=== PATIENT | male | born 1950 | race Caucasian/White ===

== ENCOUNTER 2017-07-19 14:03 | Inpatient (IN) | payer SELFPAY ==
[2017-07-19] MEDS ORDERED: Iodixanol 320 MG/ML 100 ML BOTTLE IV ONE (15:40)
[2017-07-19 16:13] LABS: BASO % 0.7 % (0.0-2.0); EOS # 0.1 K/uL (0.0-0.7); EOS % 2.4 % (0.0-4.0); HEMATOCRIT 37.3 % (35.0-51.0); LYMPH # 1.5 K/uL (1.0-4.3); LYMPH % 31.9 % (20.0-40.0); MEAN CELL VOLUME 88.2 fL (80.0-94.0); MEAN CORPUSCULAR HEMOGLOBIN 29.2 pg (27.0-31.0); MEAN CORPUSCULAR HGB CONC 33.1 g/dL (33.0-37.0); MEAN PLATELET VOLUME 9.6 fL (7.2-11.7); MONO # 0.5 K/uL (0.0-0.8); NRBC % 0.1 % (0.0-2.0); RED CELL DISTRIBUTION WIDTH 14.9 % (11.5-14.5); WHITE BLOOD COUNT 4.6 K/uL (4.8-10.8)
[2017-07-19 16:23] LABS: ALB/GLOB RATIO 1.2 (1.0-2.1); ALCOHOL SERUM < 10 mg/dl (0-10); ALKALINE PHOSPHATASE 38 U/L (38-126); ALT/SGPT 29 U/L (21-72); AST/SGOT 30 U/L (17-59); BILIRUBIN,TOTAL 0.5 mg/dL (0.2-1.3); BLOOD UREA NITROGEN 13 mg/dL (9-20); CALCIUM 9.9 mg/dl (8.6-10.4); CARBON DIOXIDE 24 mmol/L (22-30); CHLORIDE 103 mmol/L (98-107); CHOLESTEROL 118 mg/dL (0-199); GFR AFRICAN-AMERICAN 49; GLUCOSE,RANDOM 93 mg/dL (75-110); POTASSIUM 5.2 mmol/L (3.6-5.2); SODIUM 142 mmol/L (132-148); TOTAL PROTEIN 7.8 g/dL (6.3-8.3)
--- NOTE | 2017-07-19 16:24 | CT ---
PROCEDURE: CT Angiography of the Brain. HISTORY: r/o cerebelar stroke COMPARISON: None available. TECHNIQUE: CT angiography of the intracranial arteries was performed. Coronal and sagittal maximum intensity projection reformated images were generated. This CT exam was performed using one or more of the following dose reduction techniques: Automated exposure control, adjustment of the mA and/or kV according to patient size, and/or use of iterative reconstruction technique. FINDINGS: Suboptimal study. INTERNAL CEREBRAL ARTERIES: Diffuse atherosclerotic disease and foci of calcification are noted. The skull base, petrous, cavernous and supraclinoid segments are bilaterally widely patient. ANTERIOR CEREBRAL ARTERIES: Unremarkable. A1 and A2 segments are widely patent. Smaller distal branches unremarkable, as visualized. MIDDLE CEREBRAL ARTERIES: Unremarkable. M1 and M2 segments are widely patent. Perisylvian branches grossly symmetric. POSTERIOR CIRCULATION: Basilar Artery: Unremarkable. Distal Vertebral Arteries: Foci of atherosclerotic calcification are seen. Posterior Cerebral Arteries: Unremarkable. Posterior Inferior Cerebellar Arteries: Are not well visualized ANEURYSM/ VASCULAR MALFORMATIONS: None. OTHER FINDINGS: None. IMPRESSION: Suboptimal study. No evidence of focal stenosis or occlusion in the visualized intracranial arteries.
[2017-07-19 16:36] LABS: RBC URINE < 1 /hpf (0-3); URINE BILIRUBIN NEGATIVE (NEGATIVE); URINE BLOOD NEGATIVE (NEGATIVE); URINE COLOR Colorless (YELLOW); URINE GLUCOSE (UA) NORMAL (Normal); URINE KETONE NEGATIVE (NEGATIVE); URINE LEUKOCYTE ESTERASE NEG Leu/uL (Negative); URINE PROTEIN NEGATIVE (NEGATIVE); URINE UROBILINOGEN NORMAL mg/dL (0.2-1.0); WBC URINE < 1 /hpf (0-5)
--- NOTE | 2017-07-19 16:38 | C.PDOC ---
History Of Present Illness A 67 year old male, whose past medical history includes hypertension, hypercholesterolemia, CAD with stents, and hypothyroidism, presents to the emergency department complaining of light headedness and unbalanced gait, which began earlier tody. The patient states he felt fine yesterday and this morning when he woke up. It was not only until he got out of bed at 06:30 when he realized he felt light headed. He went to see his primary doctor and his doctor discovered that he had high blood pressure and low pulse rate. The patient denies any nausea, vomiting, headaches, fever, or any other complaints at this time. Time Seen by Provider: 07/19/17 14:56 Chief Complaint (Nursing): High Blood Pressure History Per: Patient History/Exam Limitations: no limitations Onset/Duration Of Symptoms: Hrs Current Symptoms Are (Timing): Still Present Associated Symptoms: Dizziness Past Medical History Vital Signs: Last Vital Signs Temp 98.0 F 07/19/17 17:11 Pulse 51 L 07/19/17 17:11 Resp 20 07/19/17 17:11 BP 165/66 H 07/19/17 17:11 Pulse Ox 98 07/19/17 17:16 - Medical History PMH: HTN, Hypercholesterolemia, Hypothyroidism - [facility] Procedures COLONOSCOPY (04/11/15) CORONAR ARTERIOGR-2 CATH (10/30/13) INSERTION OF ONE VASCULAR STENT (10/30/13) INSRT OF DRUG-ELUTING CORON ARTERY STENTS(S) (10/30/13) LEFT HEART CARDIAC CATH (10/30/13) LT HEART ANGIOCARDIOGRAM (10/30/13) PERCUTANEOUS TRANSLUMINAL CORONARY ANGIOPLASTY [PTCA] (10/30/13) PROCEDURE ON SINGLE VESSEL (10/30/13) Family History: States: Unknown Family Hx - Social History Hx Tobacco Use: No Hx Alcohol Use: No Hx Substance Use: No - Immunization History Hx Tetanus Toxoid Vaccination: Yes Hx Influenza Vaccination: No Hx Pneumococcal Vaccination: No Review Of Systems Except As Marked, All Systems Reviewed And Found Negative. Constitutional: Negative for: Fever Gastrointestinal: Negative for: Nausea, Vomiting Neurological: Negative for: Headache Physical Exam - Physical Exam Appears: Well, Non-toxic, No Acute Distress Skin: Normal Color, Warm, Dry Head: Atraumatic, Normacephalic Eye(s): bilateral: Normal Inspection, PERRL, EOMI Nose: Normal Throat: Normal Neck: Normal Cardiovascular: Rhythm Regular Respiratory: Normal Breath Sounds Gastrointestinal/Abdominal: Normal Exam Back: Normal Inspection Extremity: Normal ROM Neurological/Psych: Normal Speech, Normal Cognition, Normal Cranial Nerves, Normal Motor, Normal Sensation, Normal Reflexes, Other (Awake and alert; nerves intact; normal motor strength; no drift; no ataxia; patient can stand on one foot on each side without any difficulty; figure to nose teste is okay; + when patient walked bout 5-10 paces, his balance was visabily off balanced and patient leaned more to one side.) ED Course And Treatment - Laboratory Results Result Diagrams: 07/19/17 15:51 07/19/17 15:51 O2 Sat by Pulse Oximetry: 98 NIHSS Stroke Scale - Date/Time Evaluation Performed Date Performed: 07/19/17 Time Performed: 14:00 When Was NIHSS Performed: Baseline - How Severe is the Stoke Level of Consciousness: 0=Alert LOC to Questions: 0=Both comments correct LOC to commands: 0=Obeys both correctly Best Gaze: 0=Normal Visual: 0=No visual loss Facial: 0=Normal Motor Arm - Left: 0=No drift Motor Arm - Right: 0=No drift Motor Leg - Left: 0=No drift Motor Leg - Right: 0=No drift Limb Ataxia: 0=Absent Sensory: 0=Normal Best Language: 0=No aphasia Dysarthia: 0=Normal articulation Extinction & Inattention (Neglect): 0=Normal, no object Score: 0 Severity Of Stroke: 0= No Stroke Medical Decision Making Medical Decision Making: Treatment Plan: -- EKG -- Labs -- Neuro consult -- Physician consult -- ASA, Plavix -- portrait artist, IV Insertion -- Admit to hospital Progress Notes: Disposition Discussed With : Pablo Rai Doctor Will See Patient In The: Hospital Counseled Patient/Family Regarding: Studies Performed - Disposition Disposition: HOSPITALIZED Disposition Time: 16:38 Condition: SERIOUS - Clinical Impression Clinical Impression: Vertebral artery disease, Abnormal blood pressure - Scribe Statement The provider has reviewed the documentation as recorded by the Scribe Ольга Aguilar All medical record entries made by the Scribe were at my direction and personally dictated by me. I have reviewed the chart and agree that the record accurately reflects my personal performance of the history, physical exam, medical decision making, and the department course for this patient. I have also personally directed, reviewed, and agree with the discharge instructions and disposition. Decision To Admit - Pt Status Changed To: Hospital Disposition Of: Inpatient - Admit Certification Admit to Inpatient:: After my assessment, the patient will require hospitalization for at least two midnights. This is because of the severity of symptoms shown, intensity of services needed, and/or the medical risk in this patient being treated as an outpatient. - InPatient: Physician Admission Certification: I certify that this patient requires 2 or more midnights of care for the following reason:: possible stroke - . Bed Request Type: Telemetry Admitting Physician: Jorge Peña Patient Diagnosis: Vertebral artery disease, Abnormal blood pressure
--- NOTE | 2017-07-19 16:56 | CP.PCM.CON ---
History of Present Illness - History of Present Illness History of Present Illness: Mr. Rivas is a 67-year-old man with a past medical history of HTN, CAD, [place] (s/p stent, on Plavix and Lipitor), who presented to the ED after noticing that his balance was off since he woke up this morning. He felt as though he was not able to have a good footing when standing. He denied headache, nausea, visual changes, slurred speech, or hand-eye coordination difficulty. He denied chest pain, SOB or abdominal discomfort. At home, his BP was elevated and he was bradycardic. His daughter brought him in to the ED for evaluate. His initial NIHSS was 0. Review of Systems - Review of Systems All systems: reviewed and no additional remarkable complaints except Past Patient History - Infectious Disease Hx of Infectious Diseases: None - Past Medical History & Family History Past Medical History?: Yes - Past Social History Smoking Status: Former Smoker - CARDIAC Hx Hypercholesterolemia: Yes Hx Hypertension: Yes - NEUROLOGICAL Hx Neurological Disorder: Yes (Neuropathy ???B12 ) - ENDOCRINE/METABOLIC Hx Hypothyroidism: Yes - MUSCULOSKELETAL/RHEUMATOLOGICAL Hx Falls: No - GASTROINTESTINAL Hx Gastroesophageal Reflux: Yes - GENITOURINARY/GYNECOLOGICAL Hx Prostate Problems: Yes - PSYCHIATRIC Hx Substance Use: No - SURGICAL HISTORY Hx Cardiac Catheterization: Yes (CABG 7YRS AGO) - ANESTHESIA Hx Anesthesia: Yes Hx Anesthesia Reactions: No Meds Allergies/Adverse Reactions: Allergies Allergy/AdvReac Type Severity Reaction Status Date / Time No Known Allergies Allergy Verified 07/19/17 14:28 Physical Exam - Constitutional Appears: Well - Head Exam Head Exam: ATRAUMATIC, NORMAL INSPECTION, NORMOCEPHALIC - Eye Exam Eye Exam: EOMI, Normal appearance, PERRL - ENT Exam ENT Exam: Mucous Membranes Moist, Normal Exam - Neck Exam Neck exam: Positive for: Normal Inspection - Respiratory Exam Respiratory Exam: NORMAL BREATHING PATTERN - Cardiovascular Exam Cardiovascular Exam: REGULAR RHYTHM, +S1, +S2 - GI/Abdominal Exam GI & Abdominal Exam: Normal Bowel Sounds, Soft. absent: Tenderness - Rectal Exam Rectal Exam: Deferred - Extremities Exam Extremities exam: Positive for: normal inspection - Back Exam Back exam: NORMAL INSPECTION - Neurological Exam Neurological exam: Abnormal Gait, Alert, CN II-XII Intact, Oriented x3 - Expanded Neurological Exam Expanded Patient oriented to: person, place, time Cranial nerves: EOM's Intact: Normal, Facial Sensation: Normal Ataxia: No Cerebellar Function: Finger to Nose: Normal, Heel to [place]: Normal Upper motor neuron: Babinski Sign: Normal Sensory exam: Lower Extremity Light Touch: Normal, Lower Extremity Pin Prick: Normal, Upper Extremity Light Touch: Normal, Upper Extremity Pin Prick: Normal Neuro motor strength exam: Left Upper Extremity: 5, Right Upper Extremity: 5, Left Lower Extremity: 5, Right Lower Extremity: 5 DTR: Bicep Left: 3+, Bicep Right: 3+, Patellar Left: 3+, Patellar Right: 3+ - Psychiatric Exam Psychiatric exam: Normal Affect, Normal Mood - Skin Skin Exam: Dry, Intact, Normal Color, Warm Results - Vital Signs Recent Vital Signs: Last Vital Signs Temp 97.8 F 07/19/17 14:25 Pulse 54 L 07/19/17 16:14 Resp 16 07/19/17 16:14 BP 164/67 H 07/19/17 16:14 Pulse Ox 98 07/19/17 16:41 - Labs Result Diagrams: 07/19/17 15:51 07/19/17 15:51 Labs: Laboratory Results - last 24 hr 07/19/17 07/19/17 07/19/17 15:35 15:51 15:51 WBC 4.6 L RBC 4.23 L Hgb 12.4 Hct 37.3 MCV 88.2 MCH 29.2 MCHC 33.1 RDW 14.9 H Plt Count 158 MPV 9.6 Neut % (Auto) 54.0 Lymph % (Auto) 31.9 Door % (Auto) 11.0 H Eos % (Auto) 2.4 Baso % (Auto) 0.7 Neut # 2.5 Lymph # 1.5 Door # 0.5 Eos # 0.1 Baso # 0.0 PT 11.5 INR 1.0 APTT 32 Sodium Potassium Chloride Carbon Dioxide Anion Gap BUN Creatinine Est GFR ( Amer) Est GFR (Non-Af Amer) POC Glucose (mg/dL) 108 Random Glucose Calcium Total Bilirubin AST ALT Alkaline Phosphatase Total Protein Albumin Globulin Albumin/Globulin Ratio Triglycerides Cholesterol LDL Cholesterol Direct HDL Cholesterol Urine Color Urine Clarity Urine pH Ur Specific [place] Urine Protein Urine Glucose (UA) Urine Ketones Urine Blood Urine Nitrate Urine Bilirubin Urine Urobilinogen Ur Leukocyte Esterase Urine WBC (Auto) Urine RBC (Auto) Alcohol, Quantitative 07/19/17 07/19/17 15:51 16:30 WBC RBC Hgb Hct MCV MCH MCHC RDW Plt Count MPV Neut % (Auto) Lymph % (Auto) Door % (Auto) Eos % (Auto) Baso % (Auto) Neut # Lymph # Door # Eos # Baso # PT INR APTT Sodium 142 Potassium 5.2 Chloride 103 Carbon Dioxide 24 Anion Gap 21 H BUN 13 Creatinine 1.7 H Est GFR ( Amer) 49 Est GFR (Non-Af Amer) 40 POC Glucose (mg/dL) Random Glucose 93 Calcium 9.9 Total Bilirubin 0.5 AST 30 ALT 29 Alkaline Phosphatase 38 Total Protein 7.8 Albumin 4.2 Globulin 3.6 Albumin/Globulin Ratio 1.2 Triglycerides 131 D Cholesterol 118 LDL Cholesterol Direct 71 HDL Cholesterol 35 Urine Color Colorless Urine Clarity Clear Urine pH 7.0 Ur Specific [place] 1.016 Urine Protein Negative Urine Glucose (UA) Normal Urine Ketones Negative Urine Blood Negative Urine Nitrate Negative Urine Bilirubin Negative Urine Urobilinogen Normal Ur Leukocyte Esterase Neg Urine WBC (Auto) < 1 Urine RBC (Auto) < 1 Alcohol, Quantitative < 10 - Imaging and Cardiology CT scan - head Status: Image reviewed by me, Report reviewed by me (CTA of the head/neck showed diffuse atherosclerotic disease consistent with ICAD and vertebrobasilar involvement. The study was suboptimal.) Assessment & Plan (1) Vertebro basilar insufficiency Assessment and Plan: This may be causing intermittent symptoms of difficulty with ambulation and gait. The patient should be on dual antiplatelet therapy for intracranial atherosclerotic disease in addition to high dose statin. I recommend the followin. Telemetry 2. MRI of the brain without contrast 3. Echocardiogram 4. Start aspirin 81 mg daily along with plavix 75 mg daily. 5. Increase lipitor to 40 mg daily 6. NS at 100 mL/hr 7. DVT Px 8. PT/OT eval and treat Thank you. Status: Acute Priority: High
--- NOTE | 2017-07-19 17:03 | RAD ---
HISTORY: admission COMPARISON: Comparison is made to 04/14/2017 FINDINGS: LUNGS: No evidence of new infiltrate or consolidation in the lungs. PLEURA: No significant pleural effusion identified, no pneumothorax apparent. CARDIOVASCULAR: The cardiac silhouette is mildly enlarged. OSSEOUS STRUCTURES: No significant abnormalities. VISUALIZED UPPER ABDOMEN: Normal. OTHER FINDINGS: None. IMPRESSION: No active disease. No significant interval change since the previous exam noted.
[2017-07-19] MEDS: (Novolin R) Insulin Human Regular 100 units/ml vial SC SCH (21:43)
--- NOTE | 2017-07-19 22:56 | CP.PCM.HP ---
History of Present Illness - History of Present Illness History of Present Illness: A 67 year old male, whose past medical history includes hypertension, hypercholesterolemia, CAD with stents, and hypothyroidism, presents to the emergency department complaining of light headedness and unbalanced gait, which began earlier tody. The patient states he felt fine yesterday and this morning when he woke up. It was not only until he got out of bed at 06:30 when he realized he felt light headed. He went to see his primary doctor and his doctor discovered that he had high blood pressure and low pulse rate. The patient denies any nausea, vomiting, headaches, fever, or any other complaints at this time. Past Patient History - Infectious Disease Hx of Infectious Diseases: None - Past Medical History & Family History Past Medical History?: Yes - Past Social History Smoking Status: Former Smoker - CARDIAC Hx Cardiac Disorders: Yes Hx Hypercholesterolemia: Yes Hx Hypertension: Yes - PULMONARY Hx Respiratory Disorders: No - NEUROLOGICAL Hx Neurological Disorder: Yes (Neuropathy ? B12) - HEENT Hx HEENT Problems: No - RENAL Hx Chronic Kidney Disease: No - ENDOCRINE/METABOLIC Hx Endocrine Disorders: Yes Hx Hypothyroidism: Yes - HEMATOLOGICAL/ONCOLOGICAL Hx Blood Disorders: No - INTEGUMENTARY Hx Dermatological Problems: Yes Hx Psoriasis: Yes - MUSCULOSKELETAL/RHEUMATOLOGICAL Hx Falls: No - GASTROINTESTINAL Hx Gastrointestinal Disorders: Yes Hx Gastroesophageal Reflux: Yes - GENITOURINARY/GYNECOLOGICAL Hx Genitourinary Disorders: Yes Hx Prostate Problems: Yes - PSYCHIATRIC Hx Substance Use: Yes - SURGICAL HISTORY Hx Surgeries: Yes Hx Cardiac Catheterization: Yes (CABG 7YRS AGO) - ANESTHESIA Hx Anesthesia: Yes Hx Anesthesia Reactions: No Hx Malignant Hyperthermia: No Has any member of the family had a problem w/ anesthesia?: No Meds Allergies/Adverse Reactions: Allergies Allergy/AdvReac Type Severity Reaction Status Date / Time No Known Allergies Allergy Verified 07/19/17 14:28 Results - Vital Signs Recent Vital Signs: Last Vital Signs Temp 97.6 F 07/19/17 20:00 Pulse 55 L 07/19/17 20:00 Resp 18 07/19/17 20:00 BP 176/76 H 07/19/17 20:00 Pulse Ox 96 07/19/17 20:00 - Labs Result Diagrams: 07/19/17 15:51 07/19/17 15:51 Labs: Laboratory Results - last 24 hr 07/19/17 20:53 POC Glucose (mg/dL) 111 H
[2017-07-20] MEDS: Levothyroxine 75 MCG TAB PO SCH (05:38)
[2017-07-20] MEDS: (Novolin R) Insulin Human Regular 100 units/ml vial SC SCH ×4 (07:59→21:18)
[2017-07-20] MEDS: Enoxaparin 40 mg Syringe SC SCH (09:24)
--- NOTE | 2017-07-20 22:35 | CP.PCM.PN ---
Subjective - Date & Time of Evaluation Date of Evaluation: 07/20/17 Objective - Vital Signs/Intake and Output Vital Signs (last 24 hours): Temp Pulse Resp BP Pulse Ox 97.6 F 70 18 113/59 L 95 07/20/17 15:35 07/20/17 16:00 07/20/17 15:35 07/20/17 15:35 07/20/17 15:35 Intake and Output: 07/20/17 07/21/17 18:59 06:59 Intake Total 350 Balance 350 - Medications Medications: Current Medications Aspirin (Aspirin Chewable) 81 mg PO DAILY [facility] Last Admin: 07/20/17 09:20 Dose: 81 mg Clopidogrel Bisulfate (Plavix) 75 mg PO DAILY [facility] Last Admin: 07/20/17 09:21 Dose: 75 mg Enoxaparin Sodium (Lovenox) 40 mg SC DAILY [facility] Last Admin: 07/20/17 09:24 Dose: 40 mg Famotidine (Pepcid) 20 mg PO DAILY [facility] Last Admin: 07/20/17 09:20 Dose: 20 mg Fenofibrate (Tricor) 145 mg PO DAILY [facility] Last Admin: 07/20/17 09:24 Dose: 145 mg Finasteride (Proscar) 5 mg PO DAILY [facility] Last Admin: 07/20/17 09:21 Dose: 5 mg Gabapentin (Neurontin) 300 mg PO TID [facility] Last Admin: 07/20/17 17:49 Dose: 300 mg Insulin Human Regular (Novolin R) 0 unit SC [facility] PRN Reason: Protocol Last Admin: 07/20/17 21:18 Dose: Not Given Levothyroxine Sodium (Synthroid) 75 mcg PO DAILY@0630 [facility] Last Admin: 07/20/17 05:38 Dose: 75 mcg Losartan Potassium (Cozaar) 100 mg PO DAILY [facility] Last Admin: 07/20/17 09:21 Dose: 100 mg Pneumococcal Polyvalent Vaccine (Pneumovax 23 Vaccine) 0.5 ml IM .ONCE ONE Stop: 07/21/17 10:01 Rosuvastatin Calcium (Crestor) 10 mg PO HS [facility] Last Admin: 07/20/17 21:12 Dose: 10 mg Tamsulosin HCl (Flomax) 0.4 mg PO DAILY [facility] Last Admin: 07/20/17 09:21 Dose: 0.4 mg - Labs Labs: PT 11.5 SECONDS (9.7-12.2) 07/19/17 15:51 INR 1.0 07/19/17 15:51 APTT 32 SECONDS (21-34) 07/19/17 15:51
[2017-07-21 00:38] VITALS: RESP 20
[2017-07-21] MEDS: Levothyroxine 75 MCG TAB PO SCH (05:43)
[2017-07-21] MEDS: (Novolin R) Insulin Human Regular 100 units/ml vial SC SCH ×2 (08:20→12:35)
[2017-07-21] MEDS ORDERED: Pneumococcal 23-Valent Vaccine IM ONE (10:00)
[2017-07-21] MEDS: Enoxaparin 40 mg Syringe SC SCH (10:10)
--- NOTE | 2017-07-21 10:24 | CP.PCM.CON ---
History of Present Illness - History of Present Illness History of Present Illness: The pt is a 67 year old man with CAD, s/p PCI, who had a minute or two of imbalance, though he might fall. No chest pain, no syncope, no dyspnea. Symptoms resolved quickly. pot came to ER and was admitted. Echo reviewed by me , and ecg also, are both normal. TNI is negative once. Review of Systems - Review of Systems All systems: reviewed and no additional remarkable complaints except (as above.) Past Patient History - Infectious Disease Hx of Infectious Diseases: None - Past Medical History & Family History Past Medical History?: Yes - Past Social History Smoking Status: Former Smoker - CARDIAC Hx Cardiac Disorders: Yes Hx Hypercholesterolemia: Yes Hx Hypertension: Yes - PULMONARY Hx Respiratory Disorders: No - NEUROLOGICAL Hx Neurological Disorder: Yes (Neuropathy ? B12) - HEENT Hx HEENT Problems: No - RENAL Hx Chronic Kidney Disease: No - ENDOCRINE/METABOLIC Hx Endocrine Disorders: Yes Hx Hypothyroidism: Yes - HEMATOLOGICAL/ONCOLOGICAL Hx Blood Disorders: No - INTEGUMENTARY Hx Dermatological Problems: Yes Hx Psoriasis: Yes - MUSCULOSKELETAL/RHEUMATOLOGICAL Hx Falls: No - GASTROINTESTINAL Hx Gastrointestinal Disorders: Yes Hx Gastroesophageal Reflux: Yes - GENITOURINARY/GYNECOLOGICAL Hx Genitourinary Disorders: Yes Hx Prostate Problems: Yes - PSYCHIATRIC Hx Substance Use: Yes - SURGICAL HISTORY Hx Surgeries: Yes Hx Cardiac Catheterization: Yes (CABG 7YRS AGO) - ANESTHESIA Hx Anesthesia: Yes Hx Anesthesia Reactions: No Hx Malignant Hyperthermia: No Has any member of the family had a problem w/ anesthesia?: No Meds Allergies/Adverse Reactions: Allergies Allergy/AdvReac Type Severity Reaction Status Date / Time No Known Allergies Allergy Verified 07/19/17 14:28 - Medications Medications: Current Medications Aspirin (Aspirin Chewable) 81 mg PO DAILY [facility] Last Admin: 07/21/17 10:09 Dose: 81 mg Clopidogrel Bisulfate (Plavix) 75 mg PO DAILY [facility] Last Admin: 07/21/17 10:09 Dose: 75 mg Enoxaparin Sodium (Lovenox) 40 mg SC DAILY [facility] Last Admin: 07/21/17 10:10 Dose: 40 mg Famotidine (Pepcid) 20 mg PO DAILY [facility] Last Admin: 07/21/17 10:09 Dose: 20 mg Fenofibrate (Tricor) 145 mg PO DAILY [facility] Last Admin: 07/21/17 10:16 Dose: 145 mg Finasteride (Proscar) 5 mg PO DAILY [facility] Last Admin: 07/21/17 10:09 Dose: 5 mg Gabapentin (Neurontin) 300 mg PO TID [facility] Last Admin: 07/21/17 10:10 Dose: 300 mg Insulin Human Regular (Novolin R) 0 unit SC [facility] PRN Reason: Protocol Last Admin: 07/21/17 08:20 Dose: Not Given Levothyroxine Sodium (Synthroid) 75 mcg PO DAILY@0630 [facility] Last Admin: 07/21/17 05:43 Dose: 75 mcg Losartan Potassium (Cozaar) 100 mg PO DAILY [facility] Last Admin: 07/21/17 10:10 Dose: 100 mg Rosuvastatin Calcium (Crestor) 10 mg PO HS [facility] Last Admin: 07/20/17 21:12 Dose: 10 mg Tamsulosin HCl (Flomax) 0.4 mg PO DAILY [facility] Last Admin: 07/21/17 10:09 Dose: 0.4 mg Physical Exam - Constitutional Appears: Well - Head Exam Head Exam: ATRAUMATIC - Eye Exam Eye Exam: EOMI Pupil Exam: NORMAL ACCOMODATION - ENT Exam ENT Exam: Mucous Membranes Moist - Neck Exam Neck exam: Positive for: Normal Inspection - Respiratory Exam Respiratory Exam: Clear to Auscultation Bilateral - Cardiovascular Exam Cardiovascular Exam: REGULAR RHYTHM - GI/Abdominal Exam GI & Abdominal Exam: Normal Bowel Sounds - Rectal Exam Rectal Exam: NORMAL INSPECTION - Exam External exam: NORMAL EXTERNAL EXAM - Extremities Exam Extremities exam: Positive for: normal inspection - Back Exam Back exam: NORMAL INSPECTION - Neurological Exam Neurological exam: Alert, CN II-XII Intact, Normal Gait, Oriented x3 - Psychiatric Exam Psychiatric exam: Normal Affect, Normal Mood - Skin Skin Exam: Normal Color, Warm Results - Vital Signs Recent Vital Signs: Last Vital Signs Temp 98.2 F 07/21/17 09:15 Pulse 62 07/21/17 09:15 Resp 20 07/21/17 09:15 BP 138/70 07/21/17 09:15 Pulse Ox 95 07/21/17 09:15 - Labs Result Diagrams: 07/19/17 15:51 07/19/17 15:51 Labs: Laboratory Results - last 24 hr 07/20/17 07/20/17 07/20/17 12:15 16:47 20:55 POC Glucose (mg/dL) 95 138 H 141 H 07/21/17 06:38 POC Glucose (mg/dL) 95 - Impressions Impression: ecg by me s ry, otherwise normal. Assessment & Plan - Assessment and Plan (Free Text) Assessment: 1. Asymptomatic sinus bradycardia. 2. No evidence of acute ischemia. 3. Pt is stable. Consider outpatient event monitor to assess for slow heart rates and any possible correlation to symptoms.
--- NOTE | 2017-07-21 11:22 | CP.PCM.PN ---
Subjective - Date & Time of Evaluation Date of Evaluation: 07/21/17 Time of Evaluation: 11:19 - Subjective Subjective: Mr. Rivas was seen and examined at bedside. He denies any dizziness, lightheadedness, gait instability, headache, or syncope. There was no untoward events overnight. Objective - Vital Signs/Intake and Output Vital Signs (last 24 hours): Temp Pulse Resp BP Pulse Ox 98.2 F 62 20 138/70 95 07/21/17 09:15 07/21/17 09:15 07/21/17 09:15 07/21/17 09:15 07/21/17 09:15 - Medications Medications: Current Medications Aspirin (Aspirin Chewable) 81 mg PO DAILY [facility] Last Admin: 07/21/17 10:09 Dose: 81 mg Clopidogrel Bisulfate (Plavix) 75 mg PO DAILY [facility] Last Admin: 07/21/17 10:09 Dose: 75 mg Enoxaparin Sodium (Lovenox) 40 mg SC DAILY [facility] Last Admin: 07/21/17 10:10 Dose: 40 mg Famotidine (Pepcid) 20 mg PO DAILY [facility] Last Admin: 07/21/17 10:09 Dose: 20 mg Fenofibrate (Tricor) 145 mg PO DAILY [facility] Last Admin: 07/21/17 10:16 Dose: 145 mg Finasteride (Proscar) 5 mg PO DAILY [facility] Last Admin: 07/21/17 10:09 Dose: 5 mg Gabapentin (Neurontin) 300 mg PO TID [facility] [place] Last Admin: 07/21/17 10:10 Dose: 300 mg Insulin Human Regular (Novolin R) [address] SC [facility] PRN Reason: Protocol Last Admin: 07/21/17 08:20 Dose: Not Given Levothyroxine Sodium (Synthroid) 75 mcg PO DAILY@0630 [facility] [place] Last Admin: 07/21/17 05:43 Dose: 75 mcg Losartan Potassium (Cozaar) 100 mg PO DAILY [facility] [place] Last Admin: 07/21/17 10:10 Dose: 100 mg Rosuvastatin Calcium (Crestor) 10 mg PO HS [facility] [place] Last Admin: 07/20/17 21:12 Dose: 10 mg Tamsulosin HCl (Flomax) 0.4 mg PO DAILY [facility] Last Admin: 07/21/17 10:09 Dose: 0.4 mg - Labs Labs: PT 11.5 SECONDS (9.7-12.2) 07/19/17 15:51 INR 1.0 07/19/17 15:51 APTT 32 SECONDS (21-34) 07/19/17 15:51 - Constitutional Appears: Well - Head Exam Head Exam: ATRAUMATIC, NORMAL INSPECTION, NORMOCEPHALIC - Neurological Exam Neurological Exam: Alert, Awake, CN II-XII Intact, Oriented x3 Neuro motor strength exam: Left Upper Extremity: 5, Right Upper Extremity: 5, Left Lower Extremity: 5, Right Lower Extremity: 5 Additional comments: neurological unchanged. He is able to ambulate around the unit without any problem. Assessment and Plan (1) Gait instability Assessment & Plan: Case discussed with Dr. Rai. Pending MRI result, continue physical and occupational therapy, increase dose of simvastatin to 20 mg PO daily Status: Acute
--- NOTE | 2017-07-21 12:07 | MRI ---
PROCEDURE: MRI BRAIN WITHOUT CONTRAST HISTORY: vertebral artery disease, stroke, ataxia COMPARISON: Brain CT angiogram 07/19/2017. TECHNIQUE: Multiplanar, multisequence MR images of the brain were obtained without intravenous contrast enhancement. FINDINGS: HEMORRHAGE: None DWI: No evidence of an acute or early subacute infarction. BRAIN PARENCHYMA: Expansion of the ventricular sulcal and cisternal spaces appreciated mildly, compatible diffuse cerebral atrophy. Further, limited punctate subcortical and centrum semiovale as well as periventricular white matter changes are appreciate compatible chronic microangiopathy. There is no mass effect or suspicious extra-axial fluid collection. The midline brain anatomy appears grossly nonfocal including the corpus callosum. The craniocervical junction appears intact. VENTRICLES: Unremarkable. No hydrocephalus. CRANIUM: Unremarkable. ORBITS: Grossly unremarkable. PARANASAL SINUSES/MASTOIDS: Clear VASCULAR SYSTEM: Skull base flow voids intact. OTHER FINDINGS: None. IMPRESSION: Mild age related neuro degenerative changes are appreciated with no definite acute or subacute brain infarction intracranial hemorrhage or mass-effect appreciated at this time.
--- NOTE | 2017-07-21 15:04 | CP.PCM.PN ---
Subjective - Date & Time of Evaluation Date of Evaluation: 07/21/17 Time of Evaluation: 12:15 - Subjective Subjective: Patient seen today , denies any chest pain, sob, dizziness, headache, oob ambulates with steady gait . no dizziness reported upon ambulation Objective - Vital Signs/Intake and Output Vital Signs (last 24 hours): Temp Pulse Resp BP Pulse Ox 98.2 F 62 20 138/70 95 07/21/17 09:15 07/21/17 09:15 07/21/17 09:15 07/21/17 09:15 07/21/17 09:15 - Medications Medications: Current Medications Aspirin (Aspirin Chewable) 81 mg PO DAILY [facility] Last Admin: 07/21/17 10:09 Dose: 81 mg Clopidogrel Bisulfate (Plavix) 75 mg PO DAILY [facility] Last Admin: 07/21/17 10:09 Dose: 75 mg Enoxaparin Sodium (Lovenox) 40 mg SC DAILY [facility] Last Admin: 07/21/17 10:10 Dose: 40 mg Famotidine (Pepcid) 20 mg PO DAILY [facility] Last Admin: 07/21/17 10:09 Dose: 20 mg Fenofibrate (Tricor) 145 mg PO DAILY [facility] Last Admin: 07/21/17 10:16 Dose: 145 mg Finasteride (Proscar) 5 mg PO DAILY [facility] Last Admin: 07/21/17 10:09 Dose: 5 mg Gabapentin (Neurontin) 300 mg PO TID [facility] Last Admin: 07/21/17 14:15 Dose: 300 mg Insulin Human Regular (Novolin R) 0 unit SC [facility] PRN Reason: Protocol Last Admin: 07/21/17 12:35 Dose: Not Given Levothyroxine Sodium (Synthroid) 75 mcg PO DAILY@0630 [facility] Last Admin: 07/21/17 05:43 Dose: 75 mcg Losartan Potassium (Cozaar) 100 mg PO DAILY [facility] Last Admin: 07/21/17 10:10 Dose: 100 mg Rosuvastatin Calcium (Crestor) 20 mg PO HS [facility] Tamsulosin HCl (Flomax) 0.4 mg PO DAILY [facility] Last Admin: 07/21/17 10:09 Dose: 0.4 mg - Labs Labs: PT 11.5 SECONDS (9.7-12.2) 07/19/17 15:51 INR 1.0 07/19/17 15:51 APTT 32 SECONDS (21-34) 07/19/17 15:51 - Constitutional Appears: Well, No Acute Distress - Respiratory Exam Respiratory Exam: Clear to Ausculation Bilateral, NORMAL BREATHING PATTERN - Cardiovascular Exam Cardiovascular Exam: REGULAR RHYTHM, +S1, +S2 - Neurological Exam Neurological Exam: Alert, Awake, CN II-XII Intact, Oriented x3 Neuro motor strength exam: Left Upper Extremity: 5, Right Upper Extremity: 5, Left Lower Extremity: 5, Right Lower Extremity: 5 Assessment and Plan - Assessment and Plan (Free Text) Assessment: A/P 67 yr old male admitted for light headedness and unbalanced gait,bradycardia HR - Improved after stopped beta mumtaz carotid doppler- R moderate , left - mild MRI- Mild age related neuro degenerative changes are appreciated with no definite acute or subacute brain infarction intracranial hemorrhage or mass- effect appreciated at this time. D/W Dr. Peña, cleared for discharge home today and f/u with Dr. Bower office in [address] Nadja verduzco office in 1 week Discharge instructions discussed with patient who understands and agrees with plan
--- NOTE | 2017-07-21 15:48 | CARD ---
APPROVED REPORT EXAM: Two-dimensional and M-mode echocardiogram with Doppler and color Doppler. Other Information Quality : GoodRhythm : INDICATION Cardiac Disease: CAD STROKE- ATAXIA RISK FACTORS Hypertension Hyperlipidemia 2D DIMENSIONS IVSd1.4 (0.7-1.1cm)LVDd4.3 (3.9-5.9cm) PWd1.0 (0.7-1.1cm)LVDs2.9 (2.5-4.0cm) FS (%) 31.7 %LVEF (%)60.0 (>50%) M-Mode DIMENSIONS Left Atrium (MM)4.25 (2.5-4.0cm)Aortic Root3.68 (2.2-3.7cm) Aortic Cusp Exc.1.94 (1.5-2.0cm) Mitral Valve MV E Itrptfpd00.0cm/sMV A Tcxzfmht908.6cm/sE/A ratio0.7 TDI E/Lateral E'0.0E/Medial E'0.0 Tricuspid Valve TR Peak [id number]/sTR Peak [id number] LEFT VENTRICLE The left ventricle is normal size. There is normal left ventricular wall thickness. The left ventricular function is normal. The left ventricular ejection fraction is within the normal range. There is normal LV segmental wall motion. Transmitral Doppler flow pattern is abnormal. RIGHT VENTRICLE The right ventricle is normal size. ATRIA The left atrium is mildly dilated. The right atrium size is normal. AORTIC VALVE The aortic valve is normal in structure. MITRAL VALVE Mitral regurgitation is trace to mild. TRICUSPID VALVE There is mild tricuspid regurgitation. <Conclusion> Normal LV systolic function. Diastolic dysfunction. Trace to mild MR. Midl TR. Dialted LA.
[2017-07-21 16:47] VITALS: BP 151/67; PULSE 71; TEMP 97.9; O2SAT 96
--- NOTE | 2017-07-21 23:29 | CP.PCM.DIS ---
Provider - Provider Date of Admission: 07/19/17 16:40 Attending physician: Jorge Peña MD Hospital Course - Lab Results Lab Results: Most Recent Lab Values WBC 4.6 K/uL (4.8-10.8) L 07/19/17 15:51 RBC 4.23 Mil/uL (4.40-5.90) L 07/19/17 15:51 Hgb 12.4 g/dL (12.0-18.0) 07/19/17 15:51 Hct 37.3 % (35.0-51.0) 07/19/17 15:51 MCV 88.2 fL (80.0-94.0) 07/19/17 15:51 MCH 29.2 pg (27.0-31.0) 07/19/17 15:51 MCHC 33.1 g/dL (33.0-37.0) 07/19/17 15:51 RDW 14.9 % (11.5-14.5) H 07/19/17 15:51 Plt Count 158 K/uL (130-400) 07/19/17 15:51 MPV 9.6 fL (7.2-11.7) 07/19/17 15:51 Neut % (Auto) 54.0 % (50.0-75.0) 07/19/17 15:51 Lymph % (Auto) 31.9 % (20.0-40.0) 07/19/17 15:51 [place] % (Auto) 11.0 % (0.0-10.0) H 07/19/17 15:51 Eos % (Auto) 2.4 % (0.0-4.0) 07/19/17 15:51 Baso % (Auto) 0.7 % (0.0-2.0) 07/19/17 15:51 Neut # 2.5 K/uL (1.8-7.0) 07/19/17 15:51 Lymph # 1.5 K/uL (1.0-4.3) 07/19/17 15:51 [place] # 0.5 K/uL (0.0-0.8) 07/19/17 15:51 Eos # 0.1 K/uL (0.0-0.7) 07/19/17 15:51 Baso # 0.0 K/uL (0.0-0.2) 07/19/17 15:51 PT 11.5 SECONDS (9.7-12.2) 07/19/17 15:51 INR 1.0 07/19/17 15:51 APTT 32 SECONDS (21-34) 07/19/17 15:51 Sodium 142 mmol/L (132-148) 07/19/17 15:51 Potassium 5.2 mmol/L (3.6-5.2) 07/19/17 15:51 Chloride 103 mmol/L (98-107) 07/19/17 15:51 Carbon Dioxide 24 mmol/L (22-30) 07/19/17 15:51 Anion Gap 21 (10-20) H 07/19/17 15:51 BUN 13 mg/dL (9-20) 07/19/17 15:51 Creatinine 1.7 MG/DL (0.8-1.5) H 07/19/17 15:51 Est GFR ( Amer) 49 07/19/17 15:51 Est GFR (Non-Af Amer) 40 07/19/17 15:51 POC Glucose (mg/dL) 128 mg/dL (65-110) H 07/21/17 12:25 Random Glucose 93 mg/dL (75-110) 07/19/17 15:51 Hemoglobin A1c 6.3 % (4.2-6.5) 07/19/17 15:51 Calcium 9.9 mg/dl (8.6-10.4) 07/19/17 15:51 Total Bilirubin 0.5 mg/dL (0.2-1.3) 07/19/17 15:51 AST 30 U/L (17-59) 07/19/17 15:51 ALT 29 U/L (21-72) 07/19/17 15:51 Alkaline Phosphatase 38 U/L (38-126) 07/19/17 15:51 Total Creatine Kinase 103 U/L (55-170) 07/19/17 22:51 CK-MB (Mass) 0.59 ng/mL (0.0-3.38) 07/19/17 22:51 Troponin I < 0.0120 ng/mL (0.00-0.120) 07/19/17 15:51 Troponin I, Quant < 0.0120 ng/mL (0.00-0.120) 07/19/17 22:51 NT-Pro-B Natriuret Pep 215 pg/mL (0-900) 07/19/17 15:51 Total Protein 7.8 g/dL (6.3-8.3) 07/19/17 15:51 Albumin 4.2 g/dL (3.5-5.0) 07/19/17 15:51 Globulin 3.6 gm/dL (2.2-3.9) 07/19/17 15:51 Albumin/Globulin Ratio 1.2 (1.0-2.1) 07/19/17 15:51 Triglycerides 131 mg/dL (0-149) D 07/19/17 15:51 Cholesterol 118 mg/dL (0-199) 07/19/17 15:51 LDL Cholesterol Direct 71 mg/dL (0-129) 07/19/17 15:51 HDL Cholesterol 35 mg/dL (30-70) 07/19/17 15:51 Urine Color Colorless (YELLOW) 07/19/17 16:30 Urine Clarity Clear (Clear) 07/19/17 16:30 Urine pH 7.0 (5.0-8.0) 07/19/17 16:30 Ur Specific [place] 1.016 (1.003-1.030) 07/19/17 16:30 Urine Protein Negative mg/dL (NEGATIVE) 07/19/17 16:30 Urine Glucose (UA) Normal mg/dL (Normal) 07/19/17 16:30 Urine Ketones Negative mg/dL (NEGATIVE) 07/19/17 16:30 Urine Blood Negative (NEGATIVE) 07/19/17 16:30 Urine Nitrate Negative (NEGATIVE) 07/19/17 16:30 Urine Bilirubin Negative (NEGATIVE) 07/19/17 16:30 Urine Urobilinogen Normal mg/dL (0.2-1.0) 07/19/17 16:30 Ur Leukocyte Esterase Neg Isatu/uL (Negative) 07/19/17 16:30 Urine WBC (Auto) < 1 /hpf (0-5) 07/19/17 16:30 Urine RBC (Auto) < 1 /hpf (0-3) 07/19/17 16:30 Alcohol, Quantitative < 10 mg/dl (0-10) 07/19/17 15:51 - Hospital Course Hospital Course: 67 yr old male admitted for light headedness and unbalanced gait,bradycardia HR - Improved after stopped beta mumtaz carotid doppler- R moderate , left - mild MRI- Mild age related neuro degenerative changes are appreciated with no definite acute or subacute brain infarction intracranial hemorrhage or mass- effect appreciated at this time.cleared for discharge home today and f/u with Dr. Bower office in [address] Nadja verduzco office in 1 week Discharge instructions discussed with patient who understands and agrees with plan Discharge Exam - Head Exam Head Exam: ATRAUMATIC, NORMAL INSPECTION, NORMOCEPHALIC Discharge Plan - Discharge Medications Prescriptions: Rosuvastatin Calcium [Crestor] 20 mg PO HS #30 tab Valsartan [Diovan] 320 mg PO DAILY #30 tab Clopidogrel [Plavix] 75 mg PO DAILY #30 tab - Follow Up Plan Condition: SERIOUS Disposition: HOME/ ROUTINE Instructions: Valsartan (By mouth), Clopidogrel (By mouth), Rosuvastatin (By mouth), Heart Healthy Diet (DC) Additional Instructions: Please follow up with Dr. Bower office in 1 week - call for appointment Please follow up with Dr. Nadja Carvajal office in 1-2 week- call for appointment stop taking metoprolol continue meds as per Med. Rec. Referrals: Nadja Carvajal MD [Staff Provider] - Jorge Peña MD [Staff Provider] -
--- NOTE | 2017-07-22 22:39 | CARD ---
APPROVED REPORT EKG Measurement Heart [id number] <Conclusion> Sinus bradycardia Otherwise normal ECG
== END 2017-07-21 16:50 | disposition home or self-care (01) | DRG 149 ==
LOC: C.ER 14:03 → C.9E 16:40 → C.6T 18:47
PROVIDERS: ADMIT Internal Medicine; ATTEND Internal Medicine
DX: R42 Dizziness and giddiness (principal); I10 Essential (primary) hypertension; R26.9 Unspecified abnormalities of gait and mobility; R00.1 Bradycardia, unspecified; E03.9 Hypothyroidism, unspecified; I25.10 Atherosclerotic heart disease of native coronary artery without angina pectoris; E78.00 Pure hypercholesterolemia, unspecified; K21.9 Gastro-esophageal reflux disease without esophagitis; Z79.02 Long term (current) use of antithrombotics/antiplatelets; Z87.891 Personal history of nicotine dependence; Z95.1 Presence of aortocoronary bypass graft; Z95.5 Presence of coronary angioplasty implant and graft